=== PATIENT | male | born 1990 | race Caucasian/White ===

== ENCOUNTER 2019-07-16 15:55 | Outpatient (CLI) | payer SELFPAY ==
--- NOTE | 2019-07-17 17:29 | XRAY Report ---
Reason: LOW BACK PAIN Procedure Date: 07/16/2019 Accession Number: [id number] / [id number] Procedure: XRN - Lumbar Spine 2 View CPT Code: FULL RESULT: EXAM: LUMBOSACRAL SPINE RADIOGRAPHY EXAM DATE: 07/16/2019 04:15 PM. CLINICAL HISTORY: LOW BACK PAIN. COMPARISONS: None. TECHNIQUE: 3 views. FINDINGS: Alignment: There is minimal lumbar curvature, which could be positional. No subluxation. Bones: Five [id number] lumbar vertebral bodies are present. No fracture or bone lesion visualized. Disks: Mild disk height loss in the upper and lower lumbar spine with mild endplate proliferation at L4-L5 and L5-S1 Facets: Unremarkable. Sacroiliac Joints: Unremarkable. IMPRESSION: Mild degenerative changes. RADIA
== END 2019-07-16 15:56 | disposition home or self-care (01) ==
LOC: DI.N 15:55
PROVIDERS: ATTEND Physician Assistant Medical
DX: M47.817 Spondylosis without myelopathy or radiculopathy, lumbosacral region (principal)
CPT/HCPCS: 72100

== ENCOUNTER 2020-04-18 13:28 | Emergency (ER) | payer MEDICAID ==
--- NOTE | 2020-04-18 14:57 | ED Physician Documentation ---
History of Present Illness - Stated complaint Stated Complaint: WORK RELEASE - Chief complaint Chief Complaint: Back Pain - History obtained from History obtained from: Patient - Additonal information Additional information: Patient comes emergency department complaining of wanting to be released to go back to work after coughing and straining a muscle in his back a couple of weeks ago. Patient has been off work since then, and really wants to go back to work, but because of COVID related clinic closures, he has not been able to get into see his primary care physician to get a work release. Patient states that he is feeling much better and his symptoms have completely resolved. He states that he did not have any other specific injury. He does have a history of chronic back problems which seem to flareup from time to time, but states that nothing is bothering him right at the moment. 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 His job does not involve heavy lifting. Review of Systems Ten Systems: 10 systems reviewed and negative Constitutional: reports: Reviewed and negative Eyes: reports: Reviewed and negative Ears: reports: Reviewed and negative Nose: reports: Reviewed and negative Throat: reports: Reviewed and negative Cardiac: reports: Reviewed and negative Respiratory: reports: Reviewed and negative GI: reports: Reviewed and negative : reports: Reviewed and negative Skin: reports: Reviewed and negative Musculoskeletal: reports: Reviewed and negative Neurologic: reports: Reviewed and negative Psychiatric: reports: Reviewed and negative Endocrine: reports: Reviewed and negative Immunocompromised: reports: Reviewed and negative PD PAST MEDICAL HISTORY - Present Medications Home Medications: Ambulatory Orders Medication Instructions Recorded Confirmed HYDROcod/ACETAM 5/325 [Vicodin 1 - 2 ea PO Q6H PRN #25 tablet 07/05/13 5/325] Wheelchair 1 each MC DAILY #0 each 07/05/13 - Allergies Allergies/Adverse Reactions: Allergies Allergy/AdvReac Type Severity Reaction Status Date / Time No Known Drug Allergies Allergy Verified 04/18/20 13:33 - Social History Does the pt smoke?: Yes Smoking Status: Current every day smoker Does the pt drink ETOH?: No - Immunizations Immunizations are current?: No Immunizations: TDAP >10years/unknown PD ED PE NORMAL - Vitals Vital signs reviewed: Yes - General General: Alert and oriented X 3, No acute distress - HEENT HEENT: PERRL - Neck Neck: Supple, no meningeal sign - Respiratory Respiratory: No respiratory distress - Back Back: No CVA TTP, No spinal TTP - Derm Derm: Normal color, Warm and dry, No rash - Extremities Extremities: No deformity - Neuro Neuro: Alert and oriented X 3, Other (Grossly normal) - Psych Psych: Normal mood, Normal affect Results - Vitals Vitals: Vital Signs - 24 hr 04/18/20 13:33 Temperature 36.6 C Heart Rate 80 Respiratory 14 Rate Blood Pressure 120/64 O2 Saturation 99 Oxygen O2 Source Room air PD MEDICAL DECISION MAKING - ED course Complexity details: considered differential, d/w patient ED course: I did discuss with the patient that I would write him a work note to go back to work, as he had a low risk injury in the beginning and his symptoms have completely resolved. Additionally, the patient's job does not involve heavy lifting or transferring, and as such, is also low risk for further injury.We have discussed home management of symptoms, as well as the usual indications for return. Departure - Departure Disposition: 01 Home, Self Care Clinical Impression: Back pain Qualifiers: Back pain location: low back pain Chronicity: acute Back pain laterality: right Sciatica presence: without sciatica Qualified Code(s): M54.5 - Low back pain Condition: Stable Instructions: ED Low Back Pain Injury Forms: Activity restrictions
[2020-04-18 15:35] VITALS: BP 113/62
== END 2020-04-18 15:34 | disposition home or self-care (01) ==
LOC: ED 13:28
DX: Z02.89 Encounter for other administrative examinations (principal); M54.5 Low back pain; F17.200 Nicotine dependence, unspecified, uncomplicated
CPT/HCPCS: 99281; 99283

== ENCOUNTER 2020-07-17 09:37 | Emergency (ER) | payer MEDICAID ==
[2020-07-17 10:45] LABS: BILIRUBIN,URINE NEGATIVE (NEGATIVE); GLUCOSE, URINE (UA) NEGATIVE (NEGATIVE); KETONES,URINE (UA) NEGATIVE (NEGATIVE); LEUKOCYTE ESTERASE, URINE NEGATIVE (NEGATIVE); NITRITE,URINE NEGATIVE (NEGATIVE); OCCULT BLOOD,URINE NEGATIVE (NEGATIVE); PROTEIN,URINE NEGATIVE (NEGATIVE); UROBILINOGEN,URINE 0.2 (NORMAL) E.U./dL (NORMAL)
--- NOTE | 2020-07-17 10:53 | ED Physician Documentation ---
History of Present Illness - Stated complaint Stated Complaint: ABD PX/MALE - Chief complaint Chief Complaint: UTI - History obtained from History obtained from: Patient - Additonal information Additional information: Patient comes emergency department complaining of hematuria intermittently for the last couple of days and Dysuria that occurs for a couple of seconds after he has finished voiding. Patient states that this morning, he developed some nausea and that he also noticed right lower quadrant abdominal pain. Patient is and states that he does not have any concern for possible STD. He denies any discharge from his penis. No fevers or chills. No diarrhea. Patient states the nausea is better right now, but has been coming and going. No history of kidney stones. No new back pain. No other complaints at this time. Review of Systems Ten Systems: 10 systems reviewed and negative Constitutional: reports: Reviewed and negative Eyes: reports: Reviewed and negative Ears: reports: Reviewed and negative Nose: reports: Reviewed and negative Throat: reports: Reviewed and negative Cardiac: reports: Reviewed and negative Respiratory: reports: Reviewed and negative GI: reports: Abdominal Pain, Nausea : reports: Dysuria Skin: reports: Reviewed and negative Musculoskeletal: reports: Reviewed and negative Neurologic: reports: Reviewed and negative Psychiatric: reports: Reviewed and negative Endocrine: reports: Reviewed and negative Immunocompromised: reports: Reviewed and negative PD PAST MEDICAL HISTORY - Past Medical History Cardiovascular: None Respiratory: None Neuro: None Endocrine/Autoimmune: None GI: None : None HEENT: None Psych: None Musculoskeletal: None Derm: None - Past Surgical History Past Surgical History: Yes - Present Medications Home Medications: Ambulatory Orders Medication Instructions Recorded Confirmed HYDROcod/ACETAM 5/325 [Vicodin 1 - 2 ea PO Q6H PRN #25 tablet 07/05/13 5/325] Wheelchair 1 each MC DAILY #0 each 07/05/13 Ondansetron Odt [Zofran] 4 mg TL Q6H PRN #10 tablet 07/17/20 - Allergies Allergies/Adverse Reactions: Allergies Allergy/AdvReac Type Severity Reaction Status Date / Time No Known Drug Allergies Allergy Verified 07/17/20 09:46 - Social History Does the pt smoke?: Yes Smoking Status: Current every day smoker Does the pt drink ETOH?: No ETOH Use: Wine Does the pt have substance abuse?: No Substance Use and Type: Marijuana - Immunizations Immunizations are current?: Yes Immunizations: TDAP >10years/unknown PD ED PE NORMAL - Vitals Vital signs reviewed: Yes - General General: Alert and oriented X 3, No acute distress - HEENT HEENT: Atraumatic, PERRL, EOMI, Moist mucous membranes - Neck Neck: Supple, no meningeal sign - Cardiac Cardiac: RRR, No murmur - Respiratory Respiratory: No respiratory distress, Clear bilaterally - Abdomen Abdomen: Soft, Non distended, Other (Mild right lower quadrant tenderness, no rebound or guarding.) - Derm Derm: Warm and dry - Extremities Extremities: No deformity - Neuro Neuro: Alert and oriented X 3 - Psych Psych: Normal mood, Normal affect Results - Vitals Vitals: Vital Signs - 24 hr 07/17/20 07/17/20 09:44 10:17 Temperature 36.9 C 36.7 C Heart Rate 71 57 L Respiratory 18 16 Rate Blood Pressure 119/73 114/71 O2 Saturation 100 98 Oxygen O2 Source Room air - Labs Labs: Laboratory Tests 07/17/20 09:30 Urine Color YELLOW Urine Clarity CLEAR Urine pH 7.0 Ur Specific [place] 1.020 Urine Protein NEGATIVE Urine Glucose (UA) NEGATIVE Urine Ketones NEGATIVE Urine Occult Blood NEGATIVE Urine Nitrite NEGATIVE Urine Bilirubin NEGATIVE Urine Urobilinogen 0.2 (NORMAL) Ur Leukocyte Esterase NEGATIVE Ur Microscopic Review NOT INDICATED Urine Culture Comments NOT INDICATED PD MEDICAL DECISION MAKING - ED course Complexity details: reviewed old records, reviewed results, re-evaluated patient, considered differential, d/w patient, d/w family ED course: The patient was worked up with urinalysis. He initially declined any symptomatic intervention, but later requested something for nausea, and was given ODT Zofran. The patient's urinalysis was in process for quite some time, but ultimately, came back completely negative, including for hematuria. I discussed with the patient that our CT scanner is down at the moment and will unlikely be up and running for the rest of the day. As such, I have offered the patient an ultrasound of his kidneys, ureters, and bladder, as well as appendix, to see if there is any other potential cause of his symptoms. However, the patient states he is feeling better right now and prefers to just follow-up with his primary doctor if there is any further issue. We discussed the usual indications for return. I will also give him follow-up information for urology. Departure - Departure Disposition: Home, Self Care Clinical Impression: Dysuria, Nausea Abdominal pain Qualifiers: Abdominal location: right lower quadrant Qualified Code(s): R10.31 - Right lower quadrant pain Hematuria Qualifiers: Hematuria type: unspecified type Qualified Code(s): R31.9 - Hematuria, unspecified Condition: Stable Instructions: ED Dysuria Uncertain Cause, ED Abdominal Pain Unkn Cause Male, ED Hematuria Follow-Up: Swait Givens MD [Provider Admit Priv/Credential] - Prescriptions: Ondansetron Odt [Zofran] 4 mg TL Q6H PRN #10 tablet PRN Reason: Nausea / Vomiting Comments: Your urinalysis is completely negative. It is not clear why you are having the symptoms you are having, but if your symptoms do not get better over the next few days, you should follow-up with your primary care physician for reevaluation. You may also call the urology clinic for follow-up with them, as well. If you develop worsening or severe right lower abdominal pain, or if you develop fevers or severe nausea and cannot hold anything down, please come back to the emergency department for reevaluation.
[2020-07-17 11:44] LABS: CLARITY,URINE CLEAR (CLEAR)
[2020-07-17] MEDS ORDERED: ONDANSETRON ODT 4 MG TABLET TL STA (12:00)
[2020-07-17 12:24] VITALS: BP 110/71
== END 2020-07-17 12:29 | disposition home or self-care (01) ==
LOC: ED 09:37
DX: R11.0 Nausea (principal); R30.0 Dysuria; R10.31 Right lower quadrant pain; R31.9 Hematuria, unspecified; F17.200 Nicotine dependence, unspecified, uncomplicated
CPT/HCPCS: 81003; 99284; Q0162; 81001; 87086

== ENCOUNTER 2020-07-18 14:11 | Outpatient (CLI) | payer MEDICAID ==
[2020-07-18 18:21] LABS: BASOPHILS # (AUTO) 0.1 10^3/uL (0.0-0.1); BASOPHILS % (AUTO) 1.2 %; EOSINOPHILS # (AUTO) 0.1 10^3/uL (0.0-0.7); HGB - HEMOGLOBIN 15.1 g/dL (14.0-18.0); LYMPHOCYTES # (AUTO) 1.8 10^3/uL (1.5-3.5); LYMPHOCYTES % (AUTO) 30.6 %; MEAN CORPUSCULAR HEMOGLOBIN 32.3 pg (27.0-31.0); MEAN CORPUSCULAR HGB CONC 33.2 g/dL (32.0-36.0); MEAN CORPUSCULAR VOLUME 97.2 fL (80.0-94.0); MEAN PLATELET VOLUME 9.9 fL (7.4-11.4); MONOCYTES # (AUTO) 0.6 10^3/uL (0.0-1.0); MONOCYTES % (AUTO) 10.3 %; NEUTROPHILS # (AUTO) 3.4 10^3/uL (1.5-6.6); NEUTROPHILS % (AUTO) 56.7 %; PLT - PLATELET COUNT 304 10^3/uL (130-450); RED BLOOD COUNT 4.68 10^6/uL (4.70-6.10); RED CELL DISTRIBUTION WIDTH 12.6 % (12.0-15.0); WHITE BLOOD COUNT 5.9 x10^3/uL (4.8-10.8)
[2020-07-18 18:35] LABS: ALBUMIN 5.1 g/dL (3.2-5.5); ALBUMIN/GLOBULIN RATIO 1.8 (1.0-2.2); BILIRUBIN,TOTAL 0.8 mg/dL (0.2-1.0); CALCIUM 9.4 mg/dL (8.5-10.3); CREATININE 0.8 mg/dL (0.6-1.2)
== END 2020-07-18 23:59 | disposition home or self-care (01) ==
LOC: LAB.WCP 14:11
PROVIDERS: ATTEND Nurse Practitioner Family
DX: R19.7 Diarrhea, unspecified (principal)
CPT/HCPCS: 36415; 80053; 84443; 85025

== ENCOUNTER 2020-07-19 08:00 | Outpatient (CLI) | payer MEDICAID | END 2020-07-19 23:59 | disposition home or self-care (01) | LOC: LAB.R 08:00 | PROVIDERS: ATTEND Nurse Practitioner Family | DX: R19.7 Diarrhea, unspecified (principal) | CPT/HCPCS: 81599; 87045; 87046; 87177; 87209; 87329; 87427 ==

== ENCOUNTER 2020-12-20 14:49 | Emergency (ER) | payer MEDICAID ==
[2020-12-20 15:09] VITALS: BP 120/68
[2020-12-20] MEDS ORDERED: DEXAMETHASONE 10 MG/ML VIAL PO STA (15:21)
[2020-12-20] MEDS ORDERED: CHERRY SYRUP 10 ML UDC PO ONE (15:21)
[2020-12-20] MEDS ORDERED: KETOROLAC 60 MG/2 ML VIAL IM STA (15:22)
--- NOTE | 2020-12-20 15:24 | ED Physician Documentation ---
PD HPI BACK PAIN - Stated complaint Stated Complaint: BACK PX - Chief complaint Chief Complaint: Back Pain - History obtained from History obtained from: Patient, Family - History of Present Illness Timing - onset: How many days ago (5) Timing - duration: Days (5) Timing - details: Abrupt onset, Still present Location: Lower, Right Quality: Pain, Spasm, Sharp, Similar to prior episodes Associated symptoms: No: Fever, Weakness, Numbness, Incontinent of urine, Unable to urinate, Hematuria, Incontinent of stool Improves with: Rest, Position Worsened by: Movement Contributing factors: Other (bent over to pick something up and back spasmed) Similar symptoms before: Diagnosis (lumbar spasm) Recently seen: Not recently seen - Additional information Additional information: Previously well 29-year-old male with a remote back injury has developed spasm in his back and he has been dealing with this for the past year where he will bend over and get sharp pains and spasms in his back. Today he bent over to pick something up off the floor and collapsed in spasm. Pain is on the right side of his body he is having some radiation of the pain down the lateral aspect of the right thigh he is not having numbness or tingling and he has not had any problems with his bowel or his bladder. He has not had fever. Review of Systems Constitutional: denies: Fever Ears: denies: Ear pain Nose: denies: Congestion Throat: denies: Sore throat Cardiac: denies: Chest pain / pressure Respiratory: denies: Dyspnea, Cough GI: denies: Abdominal Pain, Abdominal Swelling, Nausea, Vomiting : denies: Dysuria, Frequency Skin: denies: Rash Musculoskeletal: reports: Back pain. denies: Neck pain, Extremity pain Neurologic: denies: Generalized weakness, Focal weakness, Numbness PD PAST MEDICAL HISTORY - Past Medical History Past Medical History: No Cardiovascular: None Respiratory: None Neuro: None Endocrine/Autoimmune: None GI: None : None HEENT: None Psych: None Musculoskeletal: None Derm: None - Past Surgical History Past Surgical History: Yes - Present Medications Home Medications: Ambulatory Orders Medication Instructions Recorded Confirmed Cyclobenzaprine [Flexeril] 10 mg PO TID PRN #20 tablet 12/20/20 HYDROcod/ACETAM 5/325 [Amoret 5/325] 1 - 2 ea PO Q6H PRN #14 tablet 12/20/20 - Allergies Allergies/Adverse Reactions: Allergies Allergy/AdvReac Type Severity Reaction Status Date / Time No Known Drug Allergies Allergy Verified 12/20/20 15:09 - Social History Does the pt smoke?: Yes Smoking Status: Current every day smoker Does the pt drink ETOH?: No Does the pt have substance abuse?: No - Immunizations Immunizations are current?: Yes Immunizations: TDAP >10years/unknown - POLST Patient has POLST: No PD ED PE NORMAL - Vitals Vital signs reviewed: Yes (Normal) - General General: Alert and oriented X 3, No acute distress, Well developed/nourished, Other - HEENT HEENT: Atraumatic, PERRL, EOMI - Respiratory Respiratory: No respiratory distress - Back Back: No CVA TTP, No spinal TTP, Other (There is pain and spasms to the lumbar paraspinous muscles on the left side. They are densly spasmed and tender. ) - Derm Derm: Normal color, Warm and dry, No rash - Extremities Extremities: No deformity, No edema - Neuro Neuro: Alert and oriented X 3, cement mixer 2-12 intact, No motor deficit, No sensory deficit, Normal speech Eye Opening: Spontaneous Motor: Obeys Commands Verbal: Oriented GCS Score: 15 - Psych Psych: Normal mood, Normal affect Results - Vitals Vitals: Vital Signs - 24 hr 12/20/20 15:01 Temperature 36.3 C L Heart Rate 85 Respiratory 16 Rate Blood Pressure 120/68 O2 Saturation 98 Oxygen O2 Source Room air PD MEDICAL DECISION MAKING - ED course Complexity details: reviewed old records, re-evaluated patient, considered differential, d/w patient ED course: 29-year-old male with acute lumbar muscle spasm has significant spasm of the left lower lumbar muscles. He is administered dexamethasone 10 mg orally Toradol 60 mg IM and we will place him on a short course of pain medication a muscle relaxant. He appears to have sciatica and muscle spasm and I have asked the patient to hydrate excessively and do ice and stretch to continue to move and to follow-up with his primary especially if he is not able to have resolution of his pain over the next month. Departure - Departure Disposition: 01 Home, Self Care Clinical Impression: Sciatica Qualifiers: Laterality: right Qualified Code(s): M54.31 - Sciatica, right side Condition: Stable Instructions: ED Sciatica, ED Spasm Back No Trauma Follow-Up: [facility] [Provider Group] Prescriptions: Cyclobenzaprine [Flexeril] 10 mg PO TID PRN #20 tablet PRN Reason: Spasms HYDROcod/ACETAM 5/325 [Amoret 5/325] 1 - 2 ea PO Q6H PRN #14 tablet PRN Reason: Pain
== END 2020-12-20 15:45 | disposition home or self-care (01) ==
LOC: ED 14:49
DX: M54.41 Lumbago with sciatica, right side (principal); M62.830 Muscle spasm of back; F17.200 Nicotine dependence, unspecified, uncomplicated
CPT/HCPCS: 96372; 99283; 99284; A9270

== ENCOUNTER 2022-06-14 09:35 | Emergency (ER) | payer MEDICAID ==
[2022-06-14] MEDS ORDERED: KETOROLAC 30 MG/ML VIAL IM STA (09:57)
[2022-06-14] MEDS ORDERED: ONDANSETRON ODT 4 MG TABLET TL STA (09:57)
--- NOTE | 2022-06-14 09:57 | ED Physician Documentation ---
History of Present Illness - Stated complaint Stated Complaint: SKIN/HEAD PX - Chief complaint Chief Complaint: Fever - History obtained from History obtained from: Patient, Family - History of Present Illness Timing: Last night - Additonal information Additional information: 31-year-old male with no reported past medical history presents with low-grade frontal throbbing headache, chills, body aches, and a sensation that his skin is tight. Symptoms began rapidly last night, this morning he tried to take 8 ibuprofen for his headache, threw up, and then his brought him to the ER for evaluation. She states that he is concerned that he might have COVID-19 and would like him tested. Patient denies worst headache of life, neck stiffness, abdominal pain, rash, other complaints at this time Review of Systems Ten Systems: 10 systems reviewed and negative Constitutional: reports: Chills. denies: Fever, Myalgias Ears: denies: Loss of hearing, Ear pain, Drainage/discharge Nose: reports: Foreign Body. denies: Rhinorrhea / runny nose, Congestion Throat: denies: Sore throat, Swollen tonsils Cardiac: denies: Chest pain / pressure, Palpitations Respiratory: denies: Dyspnea, Cough GI: reports: Vomiting. denies: Abdominal Pain, Abdominal Swelling, Nausea : denies: Dysuria, Frequency, Hesitancy Skin: denies: Rash, Lesions, Abrasion (s), Laceration (s), Bite / sting Musculoskeletal: denies: Neck pain, Back pain, Joint pain Neurologic: denies: Generalized weakness, Focal weakness, Numbness PD PAST MEDICAL HISTORY - Past Medical History Cardiovascular: None Respiratory: None Neuro: None Endocrine/Autoimmune: None GI: None : None HEENT: None Psych: None Musculoskeletal: None Derm: None - Past Surgical History Past Surgical History: Yes - Present Medications Home Medications: Ambulatory Orders Medication Instructions Recorded Confirmed Cyclobenzaprine [Flexeril] 10 mg PO TID PRN #20 tablet 12/20/20 HYDROcod/ACETAM 5/325 [[place] 5/325] 1 - 2 ea PO Q6H PRN #14 tablet 12/20/20 Ondansetron Odt [Zofran] 4 mg TL Q6H PRN #30 tablet 06/14/22 - Allergies Allergies/Adverse Reactions: Allergies Allergy/AdvReac Type Severity Reaction Status Date / Time No Known Drug Allergies Allergy Verified 06/14/22 09:50 - Social History Does the pt smoke?: Yes Smoking Status: Current every day smoker Does the pt drink ETOH?: No Does the pt have substance abuse?: No - Immunizations Immunizations are current?: Yes Immunizations: TDAP >10years/unknown - POLST Patient has POLST: No PD ED PE NORMAL - Vitals Vital signs reviewed: Yes - General General: Alert and oriented X 3, No acute distress, Well developed/nourished, Other - HEENT HEENT: Atraumatic, PERRL, EOMI, Ears normal, Moist mucous membranes, Pharynx benign, Dentition benign, Other - Neck Neck: Supple, no meningeal sign, No bony TTP, No adenopathy, Thyroid normal, No JVD, No bruit, C-Spine cleared by NEXUS criteria, Other - Cardiac Cardiac: RRR, No murmur, No gallop, No rub, Strong equal pulses, Other - Respiratory Respiratory: No respiratory distress, Clear bilaterally, Other - Abdomen Abdomen: Normal bowel sounds, Soft, Non tender, Non distended, No organomegaly, Other - Male Male : Deferred - Back Back: No CVA TTP, No spinal TTP, Other - Derm Derm: Normal color, Warm and dry, No rash, Other - Extremities Extremities: No deformity, No tenderness to palpate, Normal ROM s pain, No edema, No calf tenderness / cord, Other - Neuro Neuro: Alert and oriented X 3, collar pointer 2-12 intact, No motor deficit, No sensory deficit, Normal speech, Other - Psych Psych: Normal mood, Normal affect, Other Results - Vitals Vitals: Vital Signs - 24 hr 06/14/22 06/14/22 09:48 11:31 Temperature 37.4 C 37.0 C Heart Rate 85 86 Respiratory 16 18 Rate Blood Pressure 122/62 116/66 O2 Saturation 98 100 Oxygen O2 Source Room air - Labs Labs: Laboratory Tests 06/14/22 10:08 Nasal Adenovirus (PCR) NOT DETECTED Nasal B. parapertussis DNA (PCR) NOT DETECTED Nasal Coronavir 229E PCR NOT DETECTED Nasal Coronavir HKU1 PCR NOT DETECTED Nasal Coronavir NL63 PCR NOT DETECTED Nasal Coronavir OC43 PCR NOT DETECTED Nasal Enterovir/Rhinovir PCR NOT DETECTED Nasal Influenza B PCR NOT DETECTED Nasal Influenza A PCR NOT DETECTED Nasal Parainfluen 1 PCR NOT DETECTED Nasal Parainfluen 2 PCR NOT DETECTED Nasal Parainfluen 3 PCR NOT DETECTED Nasal Parainfluen 4 PCR NOT DETECTED Nasal RSV (PCR) NOT DETECTED Nasal B.pertussis DNA PCR NOT DETECTED Nasal C.pneumoniae (PCR) NOT DETECTED Malcolm Human Metapneumo PCR NOT DETECTED Nasal M.pneumoniae (PCR) NOT DETECTED Nasal SARS-CoV-2 (PCR) DETECTED A PD MEDICAL DECISION MAKING - ED course ED course: Patient with COVID-19. Improved with anti-inflammatories and Zofran. Counseled on appropriate ibuprofen dose. Supportive care for viral illness counseled with patient and at bedside. Departure - Departure Disposition: 01 Home, Self Care Clinical Impression: COVID-19 Headache Qualifiers: Headache type: tension-type Headache chronicity pattern: acute headache Intractability: not intractable Qualified Code(s): G44.209 - Tension-type headache, unspecified, not intractable Condition: Good Instructions: ED Viral Syndrome Prescriptions: Ondansetron Odt [Zofran] 4 mg TL Q6H PRN #30 tablet PRN Reason: Nausea / Vomiting Discharge Date/Time: 06/14/22 11:31
[2022-06-14 11:06] LABS: CORONAVIRUS 229E-RESP PCR NOT DETECTED; CORONAVIRUS HKU1-RESP PCR NOT DETECTED; CORONAVIRUS NL63-RESP PCR NOT DETECTED; CORONAVIRUS OC43-RESP PCR NOT DETECTED; HUMAN METAPNEUMOVIRUS NOT DETECTED; INFLUENZA A- RESP PCR PANEL NOT DETECTED; RHINOVIRUS/ENTEROVIRUS NOT DETECTED
[2022-06-14 11:07] LABS: B. PARAPERTUSSIS- RESP PCR PAN NOT DETECTED; B. PERTUSSIS- RESP PCR PANEL NOT DETECTED; C. PNEUMONIAE- RESP PCR PANEL NOT DETECTED; INFLUENZA B - RESP PCR PANEL NOT DETECTED; M. PNEUMONIAE- RESP PCR PANEL NOT DETECTED; PARAINFLUENZA VIRUS 1 NOT DETECTED; PARAINFLUENZA VIRUS 2 NOT DETECTED; PARAINFLUENZA VIRUS 3 NOT DETECTED; PARAINFLUENZA VIRUS 4 NOT DETECTED; RSV- RESP PCR PANEL NOT DETECTED
[2022-06-14 11:11] LABS: SARS-CoV-2 -RESP PCR PANEL DETECTED
[2022-06-14 11:32] VITALS: BP 116/66
== END 2022-06-14 11:31 | disposition home or self-care (01) ==
LOC: ED 09:35
DX: U07.1 COVID-19 (principal); G44.209 Tension-type headache, unspecified, not intractable; F17.200 Nicotine dependence, unspecified, uncomplicated
CPT/HCPCS: 87633; 96372; 99282; 99283; Q0162

== ENCOUNTER 2024-02-08 21:40 | Emergency (ER) | payer MEDICAID, OTHER ==
--- NOTE | 2024-02-09 02:47 | ED Physician Documentation ---
PD HPI HEENT - Stated complaint Stated Complaint: TOOTH PX - Chief complaint Chief Complaint: Heent - History obtained from History obtained from: Patient, Family - History of Present Illness Timing - onset: How many days ago (4) Timing - duration: Days (4) Timing - details: Gradual onset, Still present Location: Tooth Improves: Medication Worsens: Temperatures Associated symptoms: Swollen nodes Similar symptoms before: Diagnosis (bad tooth) Recently seen: Not recently seen - Additional information Additional information: Christian Winters is a 33-year-old male who presents this morning with a tooth ache that is kept him awake for 4 nights. He has a tooth broken off at the gum that is very sensitive. He finds the only relief he gets is by placing cold water in his mouth against the tooth. As soon as he spits the water out he has return of his pain. He has gone through 8 bottles of water today. Review of Systems Constitutional: denies: Fever Ears: denies: Ear pain Nose: denies: Congestion Throat: reports: Dental pain / toothache. denies: Sore throat Respiratory: denies: Cough GI: denies: Vomiting PD PAST MEDICAL HISTORY - Past Medical History Cardiovascular: None Respiratory: None Neuro: None Endocrine/Autoimmune: None GI: None : None HEENT: None Psych: None Musculoskeletal: None Derm: None - Past Surgical History Past Surgical History: Yes - Present Medications Home Medications: Ambulatory Orders Medication Instructions Recorded Confirmed Cyclobenzaprine [Flexeril] 10 mg PO TID PRN #20 tablet 12/20/20 HYDROcod/ACETAM 5/325 [Engadine 5/325] 1 - 2 ea PO Q6H PRN #14 tablet 12/20/20 Ondansetron Odt [Zofran] 4 mg TL Q6H PRN #30 tablet 06/14/22 Amoxicillin 875 mg PO BID #20 tablet 02/09/24 HYDROcod/ACETAM 5/325 [Engadine 5/325] 1 - 2 tablet PO Q6H PRN #14 tablet 02/09/24 - Allergies Allergies/Adverse Reactions: Allergies Allergy/AdvReac Type Severity Reaction Status Date / Time No Known Drug Allergies Allergy Verified 06/14/22 09:50 - Social History Does the pt smoke?: Yes Smoking Status: Current every day smoker Does the pt drink ETOH?: No Does the pt have substance abuse?: No - Immunizations Immunizations are current?: Yes Immunizations: TDAP >10years/unknown - POLST Patient has POLST: No PD ED PE NORMAL - Vitals Vital signs reviewed: Yes (Hypertensive) - General General: Alert and oriented X 3, No acute distress, Well developed/nourished - HEENT HEENT: Atraumatic, PERRL, EOMI, Ears normal, Moist mucous membranes, Pharynx benign, Other (There are broken teeth and on the left upper jaw there is a tooth broken off at the gum and this area is sensitive. There is no specific swelling to the gingival or buccal mucosa.) - Neck Neck: Supple, no meningeal sign, No bony TTP - Respiratory Respiratory: No respiratory distress - Derm Derm: Normal color, Warm and dry, No rash - Extremities Extremities: No deformity, No edema - Neuro Neuro: Alert and oriented X 3, operation manager 2-12 intact, No motor deficit, No sensory deficit, Normal speech Eye Opening: Spontaneous Motor: Obeys Commands Verbal: Oriented GCS Score: 15 - Psych Psych: Normal mood, Normal affect Results - Vitals Vitals: Vital Signs - 24 hr 03/16/24 03/17/24 22:24 03:11 Temperature 36.3 C L Heart Rate 62 66 Respiratory 18 18 Rate Blood Pressure 138/72 H 125/74 O2 Saturation 100 99 Oxygen O2 Source Room air PD Medical Decision Making - ED course Complexity details: considered differential, d/w patient, d/w family ED course: 33-year-old male with a broken tooth at the gumline has significant pain associated with this. We did attempt to cover the area with [place] this did not seem to make much improvement in the patient's overall pain. We will treat the patient with pain medication and amoxicillin. He will follow-up with [facility]. Departure - Departure Disposition: 01 Home, Self Care Clinical Impression: Pain, dental Condition: Stable Instructions: ED Tooth Pain Prescriptions: Amoxicillin 875 mg PO BID #20 tablet HYDROcod/ACETAM 5/325 [Engadine 5/325] 1 - 2 tablet PO Q6H PRN #14 tablet PRN Reason: Pain Comments: Christian today looks like you have dental pain from a broken tooth and we have E scribed some amoxicillin and hydrocodone to the [facility] in [place]. Follow up with Rogel[facility] to see the dentist. The expectation with treatment is improvement in symptoms in 1-3 days. Forms: PCP List Discharge Date/Time: 02/09/24 03:30
[2024-02-09] MEDS ORDERED: AMOXICILLIN 250 MG Prepack 6 PO ONE (03:04)
[2024-02-09] MEDS: HYDROcod/ACET 5/325 Prepack 4 PO STA (03:06)
[2024-02-09] MEDS: AMOXICILLIN 250 MG Prepack 6 PO SCH (03:07)
[2024-02-09 03:20] VITALS: BP 125/74; O2SAT 99
[2024-02-09] MEDS ORDERED: AMOXICILLIN 250 MG Prepack 6 PO SCH (06:00)
== END 2024-02-09 03:30 | disposition home or self-care (01) ==
LOC: ED 21:40
DX: K08.89 Other specified disorders of teeth and supporting structures (principal); F17.200 Nicotine dependence, unspecified, uncomplicated
CPT/HCPCS: 99282; 99283